=== PATIENT | female | born 1980 | race Caucasian/White ===

== ENCOUNTER 2018-12-06 13:52 | Emergency (ER) | payer MEDICAID ==
--- NOTE | 2018-12-06 14:18 | Emergency Department Record ---
History of Present Illness - General Chief Complaint: Abdominal Pain Stated Complaint: LOWER ABD PAIN NEAR BELLY BUTTON Time Seen by Provider: 12/06/18 14:04 Source: Patient Mode of Arrival: Ambulatory Limitations: No limitations - History of Present Illness Initial Comments: pt c/o ap in lower abd which is getting worse. no n/v/c. pt did have diarrhea but that has resolved MD Complaint: Abdominal pain Onset/Timin -: Days(s) Location: Periumbilical, Suprapubic Severity: Moderate Severity scale (1-10): 8 Quality: Aching, Burning, Cramping, Dull, Fullness, Sharp, Stabbing Consistency: Constant Improves With: Nothing Worsens With: Eating Associated Symptoms: Diarrhea, Other Treatments Prior to Arrival: NSAIDs - Related Data LMP Date: 11/20/18 Patient : No Previous Rx's Medication Instructions Recorded Hydrocodone/Acetaminophen [Duncan 1 each PO Q6HR #7 tablet 12/06/18 5-325 Tablet] Allergies Allergy/AdvReac Type Severity Reaction Status Date / Time No Known Drug Allergies Allergy Verified 12/06/18 13:56 Travel Screening - Travel/Exposure Within Last 30 Days Have you traveled within the last 30 days?: No - Travel/Exposure Within Last Year Have you traveled outside the [place] in the last year?: No - Additonal Travel Details Have you been exposed to anyone with a communicable illness?: No - Travel Symptoms Symptom Screening: None Review of Systems Reviewed: No additional complaints except as noted below Constitutional: Reports: As per HPI. Denies: Chills, Fever, Malaise, Night sweats, Weakness, Weight change Eyes: Reports: As per HPI. Denies: Eye discharge, Eye pain, Photophobia, Vision change ENT: Reports: As per HPI. Denies: Congestion, Dental pain, Ear pain, Epistaxis, Hearing loss, Throat pain Respiratory: Reports: As per HPI. Denies: Cough, Dyspnea, Hemoptysis, Stridor, Wheezes Cardiovascular: Reports: As per HPI. Denies: Arrhythmia, Chest pain, Dyspnea on exertion, Edema, Murmurs, Orthopnea, Palpitations, Paroxysmal nocturnal dyspnea, Rheumatic Fever, Syncope Endocrine: Reports: As per HPI. Denies: Fatigue, Heat or cold intolerance, Polydipsia, Polyuria Gastrointestinal: Reports: As per HPI, Abdominal pain. Denies: Constipation, Diarrhea, Hematemesis, Hematochezia, Melena, Nausea, Vomiting Genitourinary: Reports: As per HPI. Denies: Abnormal menses, Discharge, Dyspareunia, Dysuria, Frequency, Hematuria, Incontinence, Retention, Urgency Musculoskeletal: Reports: As per HPI. Denies: Arthralgia, Back pain, Gout, Joint swelling, Myalgia, Neck pain Skin: Reports: As per HPI. Denies: Bruising, Change in color, Change in hair/nails, Lesions, Pruritus, Rash Neurological: Reports: As per HPI. Denies: Abnormal gait, Confusion, Headache, Numbness, Paresthesias, Seizure, Tingling, Tremors, Vertigo, Weakness Psychiatric: Reports: As per HPI. Denies: Anxiety, Auditory hallucinations, Depression, Homicidal thoughts, Suicidal thoughts, Visual hallucinations Hematological/Lymphatic: Reports: As per HPI. Denies: Anemia, Blood Clots, Easy bleeding, Easy bruising, Swollen glands Past Medical History - SOCIAL HISTORY Smoking Status: Never smoker Alcohol Use: Occasional Drug Use: None - RESPIRATORY Hx Respiratory Disorders: No - CARDIOVASCULAR Hx Cardio Disorders: No - NEURO Hx Neuro Disorders: No - GI Hx GI Disorders: No - Hx Genitourinary Disorders: No - ENDOCRINE Hx Endocrine Disorders: No - MUSCULOSKELETAL Hx Musculoskeletal Disorders: No - PSYCH Hx Psych Problems: No - HEMATOLOGY/ONCOLOGY Hx Hematology/Oncology Disorders: No Family Medical History Any Significant Family History?: No Physical Exam - General General Appearance: Alert, Oriented x3, Cooperative, Mild distress - Head Head exam: Normal inspection - Eye Eye exam: Normal appearance, PERRL, EOMI Pupils: Normal accommodation - ENT ENT exam: Normal exam, Mucous membranes moist, Normal external ear exam, Normal orophraynx Ear exam: Normal external inspection. negative: External canal tenderness Nasal Exam: Normal inspection. negative: Discharge, Sinus tenderness Mouth exam: Normal external inspection, Tongue normal Teeth exam: Normal inspection. negative: Dental caries Throat exam: Normal inspection. negative: Tonsillar erythema, Tonsillar exudate - Neck Neck exam: Normal inspection, Full ROM. negative: Tenderness - Respiratory Respiratory exam: Normal lung sounds bilaterally. negative: Respiratory distress - Cardiovascular Cardiovascular Exam: Regular rate, Normal rhythm, Normal heart sounds - GI/Abdominal GI/Abdominal exam: Soft, Normal bowel sounds, Tenderness (lower abdomen) - Rectal Rectal exam: Deferred - exam: Adnexal tenderness (L), Adnexal tenderness (R), Normal external exam, Normal speculum exam - Extremities Extremities exam: Normal inspection, Full ROM, Normal capillary refill. negative: Tenderness - Back Back exam: Reports: Normal inspection, Full ROM. Denies: Muscle spasm, Rash noted, Tenderness - Neurological Neurological exam: Alert, CN II-XII intact, Normal gait, Oriented X3 - Psychiatric Psychiatric exam: Normal affect, Normal mood - Skin Skin exam: Dry, Intact, Normal color, Warm Course Vital Signs 12/06/18 13:57 Temperature 98.6 F Pulse Rate 75 Respiratory 18 Rate Blood Pressure 114/78 Pulse Ox 99 - Reevaluation(s) Reevaluation #1: 12/06/18 16:45 ct neg except sm amt of free fluid, pt feels better 12/06/18 16:47 Medical Decision Making - Lab Data Result diagrams: 12/06/18 14:35 12/06/18 14:35 Disposition Disposition: Discharge Clinical Impression: Abdominal pain Qualifiers: Abdominal location: lower abdomen, unspecified Qualified Code(s): R10.30 - Lower abdominal pain, unspecified Disposition: Home, Self-Care Condition: (1) Good Instructions: Abdominal Pain (ED) Additional Instructions: follow up with family doctor. return sooner if worse. recheck tomorrow if still having abdominal pain Prescriptions: Hydrocodone/Acetaminophen [Duncan 5-325 Tablet] 1 each PO Q6HR #7 tablet Forms: Patient Portal Access Quality - Quality Measures Quality Measures: N/A - Blood Pressure Screening Does Patient Have Any of the Following: No Blood Pressure Classification: Normal BP Reading Systolic Measurement: 114 Diastolic Measurement: 78 Screening for High Blood Pressure: < Normal BP, F/U Not Required > [G8783]
[2018-12-06 14:19] LABS: URINE APPEARANCE CLEAR; URINE BILIRUBIN NEGATIVE (NEGATIVE); URINE BLOOD SMALL (NEGATIVE); URINE COLOR YELLOW; URINE GLUCOSE (UA) NEGATIVE (NEGATIVE); URINE KETONE NEGATIVE (NEGATIVE); URINE LEUKOCYTE ESTERASE TRACE (NEGATIVE); URINE NITRITE NEGATIVE (NEGATIVE); URINE PROTEIN NEGATIVE (NEGATIVE); URINE UROBILINOGEN 0.2 E.U./dL (0.20 - 1.00)
[2018-12-06] MEDS ORDERED: ONDANSETRON HCL IV 4 MG/2 ML VIAL IV ONE (14:19)
[2018-12-06] MEDS ORDERED: 0.9 % SODIUM CHLORIDE 1,000 ML BAG IV ONE (14:19)
[2018-12-06 14:23] LABS: HCG,QUALITATIVE URINE NEGATIVE (NEGATIVE)
[2018-12-06 14:30] LABS: URINE AMORPHOUS SEDIMENT 1+; URINE RBC 0 - 2 (NONE SEEN)
[2018-12-06 14:48] LABS: ABSOLUTE NEUTROPHIL COUNT 9.06; BASO % 0.1 % (0-6); EOS % 0.6 % (0-6); GRAN % 79.1 % (47-80); HEMATOCRIT 42.2 % (35.0-47.0); HEMOGLOBIN 14.1 gm/dl (11.6-16.0); LYMPH % 12.1 % (16-45); MEAN CELL VOLUME 90.9 fl (81-97); MEAN CORPUSCULAR HEMOGLOBIN 30.4 pg (27-33); MEAN CORPUSCULAR HGB CONC 33.4 g/dl (32-36); MEAN PLATELET VOLUME 11.3 fl (7.4-10.4); MONO % 8.1 % (0-9); PLATELET COUNT 192 K/uL (130-400); RED BLOOD COUNT 4.64 M/uL (3.80-5.40); RED CELL DISTRIBUTION WIDTH 12.7 % (11.5-14.5); WHITE BLOOD COUNT W/O DIFF 11.5 K/uL (4.2-12.2)
[2018-12-06] MEDS ORDERED: HYDROMORPHONE HCL 2 MG/ML VIAL IVP ONE (14:49)
[2018-12-06 15:06] LABS: BLOOD UREA NITROGEN 10 mg/dL (6-20); CREATININE 0.7 mg/dL (0.5-0.9); EST GLOMERULAR FILTRATION RATE > 60 mL/min
[2018-12-06 15:07] LABS: LIPASE 36 U/L (13-60); TOTAL PROTEIN 6.9 g/dL (6.6-8.7)
[2018-12-06 15:09] LABS: GLUCOSE,RANDOM 97 mg/dL (74-109)
[2018-12-06 15:12] LABS: ALB/GLOB RATIO 1.6 (1.1-1.8); ALBUMIN 4.2 g/dL (4.0-5.0); ALKALINE PHOSPHATASE 58 U/L (35-104); ALT/SGPT 11 U/L (<33); AST/SGOT 11 U/L (10.0-35.0)
[2018-12-06] MEDS ORDERED: KETOROLAC 30 MG/ML VIAL IVP ONE (16:05)
--- NOTE | 2018-12-07 13:00 | CT SCAN REPORT ---
DATE: 12/06/2018. EXAM: CT SCAN OF THE ABDOMEN AND PELVIS. HISTORY: MID ABDOMINAL PAIN. TECHNIQUE: Serial axial CT scan of the abdomen and pelvis was performed at 2.5 mm intervals from the dome of the diaphragm down to the pubic symphysis without the use of intravenous contrast. Sagittal and coronal reconstruction views were provided. COMPARISON: No comparison CTs are available. FINDINGS: The lung windows and lung bases demonstrate no CT evidence of a focal infiltrate or pleural effusion. The visualized heart size and contour is within normal limits. The liver, spleen, adrenal glands, pancreas, and gallbladder are unremarkable. There is no CT evidence of hydronephrosis or hydroureter. No renal or ureteral calculi are identified. The contour and caliber of the abdominal aorta is unremarkable. There is no CT evidence of retroperitoneal, pelvic, or inguinal lymphadenopathy. The bowel gas pattern is nonspecific and nonobstructive. The appendix is visualized and there is no CT evidence of appendicitis. There is no CT evidence of free intraperitoneal air. Postoperative changes of the anterior abdominal wall are identified. The urinary bladder is unremarkable. The uterus is unremarkable. There is a small amount of fluid identified within the posterior cul-de-sac. Occasional follicles are identified within both ovaries. These findings may be the result of a hemorrhagic ovarian cyst. If there is further clinical concern then ultrasound examination of the pelvis can be obtained for further evaluation. Bone windows demonstrate no CT evidence of a fracture or dislocation of the osseus structures that are visualized. IMPRESSION: A SMALL AMOUNT OF FLUID IS NOTED WITHIN THE POSTERIOR CUL-DE-SAC WHICH MAY REPRESENT A HEMORRHAGIC OVARIAN CYST. IF THERE IS FURTHER CLINICAL CONCERN THEN ULTRASOUND EXAMINATION OF THE PELVIS CAN BE OBTAINED FOR FURTHER EVALUATION. Job Number: [id number] [facility]
[2018-12-08 15:54] LABS: GC SPECIMEN TYPE Cervix
== END 2018-12-06 16:59 | disposition home or self-care (01) ==
LOC: ER 13:52
DX: R10.30 Lower abdominal pain, unspecified (principal); R19.7 Diarrhea, unspecified; R87.5 Abnormal microbiological findings in specimens from female genital organs
CPT/HCPCS: 74176; 80053; 81001; 81025; 83690; 85025; 87210; 96374; 96375; 99284; J1885; J2405; J7030